=== PATIENT | female | born 1995 | race Caucasian/White ===

== ENCOUNTER 2024-06-29 13:44 | Outpatient (CLI) | payer OTHER, SELFPAY ==
[2024-07-01 19:37] LABS: HPV Source Cervix; HPV, High Risk by TMA Not Detected
== END 2024-06-29 13:45 | disposition home or self-care (01) ==
PROVIDERS: Visit Provider Registered Nurse
DX: R53.83 Other fatigue (principal); Z12.4 Encounter for screening for malignant neoplasm of cervix; Z13.6 Encounter for screening for cardiovascular disorders; Z13.1 Encounter for screening for diabetes mellitus
CPT/HCPCS: 80061; 82306; 84443; 87624; 87625; 88141; 88142